=== PATIENT | male | born 1955 | race Caucasian/White ===

== ENCOUNTER 2016-08-20 16:24 | Emergency (ER) | payer OTHER ==
[~2016-08-20] VITALS: Ht 182.9 cm; Wt 86.0 kg
[2016-08-20 20:00] VITALS: BP 124/70
== END 2016-08-20 20:03 | disposition home or self-care (01) ==
LOC: EMS 16:28 → EDBD 16:28 → EMS 20:03
DX: S60.221A Contusion of right hand, initial encounter (principal); W20.8XXA Other cause of strike by thrown, projected or falling object, initial encounter; Y93.89 Activity, other specified; Y92.89 Other specified places as the place of occurrence of the external cause; Y99.8 Other external cause status
CPT/HCPCS: 99284